=== PATIENT | female | born 1985 | race Caucasian/White ===

== ENCOUNTER 2017-02-01 05:55 | Emergency (ER) | payer OTHER ==
--- NOTE | 2017-02-01 07:19 | DIAGNOSTIC IMAGING REPORT ---
PROCEDURE: XR ANKLE 3 OR 4 VIEWS - LEFT INDICATION: ANKLE INJURY TECHNIQUE: Four views. COMPARISON: None. FINDINGS: Osseous structures, joint spaces and soft tissues are normal. Ankle mortise is normal. IMPRESSION: 1. Normal left ankle.
--- NOTE | 2017-02-01 08:27 | ED ORDER SUMMARY ---
..... Patient: NGOC KNOTT [facility] VisitID: [id number] [place] [address] 31y, F Registration Date/Time: 02/01/2017 ORDER SHEET Weight: 61.2 kg (stated) Allergies: No Known Drug Allergy GENERAL ORDERS: Ankle 3 or 4V Left Urgent (06:18 02/01/2017 Rajani Green) (Ack 6:30 Rowan) (6:37 Og) Splint (LE) (Left) (Air Splint) (07:54 02/01/2017 Rajani Green) (8:13 LWhalen R.N.) Crutches (07:54 02/01/2017 Rajani Green) (8:13 LWhalen R.N.) MEDICATION ORDERS: Hydrocodone-APAP PO 5/325 mg (NOW, HIGH ALERT MEDICATION) (06:17 02/01/2017 Rajani Green) (Ack 6:21 JQuivey R.N.) (6:25 JQuivey R.N.) IV FLUIDS: ORDER SHEET NOTES: [Electronically signed by Ana M Saha R.N. (10:40 02/01/2017)] [Electronically signed by German Orellana Dr. (10:41 02/01/2017)] [Electronically locked/signed by nAa M Saha R.N. (10:40 02/01/2017)]
--- NOTE | 2017-02-01 08:27 | ED NURSING NOTES ---
Clinical Report - Nurses [facility] [address] [place] [address] 02/01/2017 5:57 [id number] TRI[facility] Triage time 06:02. Acuity: LEVEL 4. Chief Complaint: INJURY TO LEFT ANKLE. Alert. ARASELI COMA SCORE: Araseli Coma Scale: 15- eyes open spontaneously (4); best verbal response- oriented x 4 (5); best motor response- obeys commands (6). --06:06 David Newman R.N. 06:02 02/01/17. BP: 110/72. HR: 95. RR: 17 (regular and unlabored). O2 saturation: 97% on room air. Temp: 98.9 F. Pain level now: 04/28. --06:06 David Newman R.N. Weight: 61.2 kg stated. Height/Length: 65 inches. BMI: 22.5. --06:02 David Newman R.N. Medications None. --06:05 David Newman R.N. Allergies No Known Drug Allergy. --06:05 David Newman R.N. History Arrived by private vehicle. Historian: patient. Accompanied by friend. Mechanism of injury: sustained a twisting injury. ( pt states that she fell down an escalator "at work," and was wearing high heels.). She has had trouble walking. No numbness, tingling, weakness, neck pain or back pain. Treatment BUILDINGS AND GROUNDS COORDINATOR: Ice. PAST MEDICAL HX: Tetanus status: unknown. Last normal menstrual period- 4 years ago. SOCIAL HX: Heavy tobacco smoker (cigarette)- less than 1 pack per day. Regular alcohol use. History of heavy drug use. Recently used drugs today. SELF HARM ASSESSMENT: A self harm assessment was performed. The patient answered "no" to the question "Have you noticed less interest or pleasure in doing things?", "Do you have thoughts of harming or killing yourself?", "Are you here because you tried to hurt yourself?", "Have you ever tried to hurt yourself before today?" and "Have you recently had thoughts about harming or killing others?". FALL RISK ASSESSMENT: Fall risk assessment completed. No fall risk identified. NUTRITIONAL RISK ASSESSMENT: The nutritional risk assessment revealed no deficiencies. FUNCTIONAL ASSESSMENT: Functional assessment: no impairments noted. LEARNING NEEDS ASSESSMENT: The learning needs assessment revealed no barriers. SKIN INTEGRITY ASSESSMENT: Skin integrity risk assessment completed. No skin integrity risk identified. --06:06 David Newman R.N. PROBLEMS: no known problems. ADDITIONAL SURGERIES: no known surgeries. Interventions ID band on patient. To treatment room. --06:06 David Newman R.N. PHYSICAL ASSESSMENT To room via wheelchair. GENERAL / NEURO / PSYCH: Appears in pain. EXTREMITIES: Capillary refill is less than 2 seconds in the extremities. Pain with weight bearing. Left knee: small abrasion. Left leg: small abrasion. Left ankle: tenderness and swelling. Left foot: tenderness. --06:08 David Newman R.N. SKIN: Skin is warm and dry. --06:08 David Newman R.N. NURSING PROGRESS NOTES Cold pack applied. Extremity elevated. Reassurance given. Two patient identifiers checked. Call light placed in reach. Side rails up x 1. Bed placed in lowest position. Brakes of bed on. Patient ready for evaluation- chart flagged. Patient waiting for evaluation. --06:07 David Newman R.N. 06:23 02/01/2017 Hydrocodone-APAP (Hydrocodone-Acetaminophen) PO 5/325 mg Tablets 1 tab given. Allergies verified, confirmed 5 rights and sedative warning given to the patient and patient's hem marker. --06:25 Anjel Prieto R.N. ( Report given to Ana M Ramires RN, Care transferred to her.). --07:43 David Newman R.N. DISPOSITION / DISCHARGE Departure time: 0835. Condition at departure: improved. No learning barriers present. Discharge instructions provided and reviewed. Reviewed medication(s) information. Prescription(s) given to the patient. Reviewed crutch walking and splint care instructions. Patient and hem marker verbalized understanding. Written instructions provided. The patient was discharged home and accompanied by hem marker. She left the Emergency Department ambulatory. --10:39 Ana M Saha R.N. 08:35 02/01/17. BP: 113/79. HR: 72. RR: 18. O2 saturation: 100%. Temp: deferred. Pain level now: 01/27. --10:39 Ana M Saha R.N. Locked/Released at 02/01/2017 10:40 by Ana M Saha R.N.
--- NOTE | 2017-02-01 08:27 | ED NURSING NOTES ---
Clinical Report - Nurses [facility] [address] [place] [address] 02/01/2017 5:57 [id number] TRIAGE Triage time 06:02. Acuity: LEVEL 4. Chief Complaint: INJURY TO LEFT ANKLE. Alert. ARASELI COMA SCORE: Araseli Coma Scale: 15- eyes open spontaneously (4); best verbal response- oriented x 4 (5); best motor response- obeys commands (6). --06:06 David Newman R.N. 06:02 02/01/17. BP: 110/72. HR: 95. RR: 17 (regular and unlabored). O2 saturation: 97% on room air. Temp: 98.9 F. Pain level now: 04/28. --06:06 David Newman R.N. Weight: 61.2 kg stated. Height/Length: 65 inches. BMI: 22.5. --06:02 David Newman R.N. Medications None. --06:05 David Newman R.N. Allergies No Known Drug Allergy. --06:05 David Newman R.N. History Arrived by private vehicle. Historian: patient. Accompanied by friend. Mechanism of injury: sustained a twisting injury. ( pt states that she fell down an escalator "at work," and was wearing high heels.). She has had trouble walking. No numbness, tingling, weakness, neck pain or back pain. Treatment OFFBEARER: Ice. PAST MEDICAL HX: Tetanus status: unknown. Last normal menstrual period- 4 years ago. SOCIAL HX: Heavy tobacco smoker (cigarette)- less than 1 pack per day. Regular alcohol use. History of heavy drug use. Recently used drugs today. SELF HARM ASSESSMENT: A self harm assessment was performed. The patient answered "no" to the question "Have you noticed less interest or pleasure in doing things?", "Do you have thoughts of harming or killing yourself?", "Are you here because you tried to hurt yourself?", "Have you ever tried to hurt yourself before today?" and "Have you recently had thoughts about harming or killing others?". FALL RISK ASSESSMENT: Fall risk assessment completed. No fall risk identified. NUTRITIONAL RISK ASSESSMENT: The nutritional risk assessment revealed no deficiencies. FUNCTIONAL ASSESSMENT: Functional assessment: no impairments noted. LEARNING NEEDS ASSESSMENT: The learning needs assessment revealed no barriers. SKIN INTEGRITY ASSESSMENT: Skin integrity risk assessment completed. No skin integrity risk identified. --06:06 David Newman R.N. PROBLEMS: no known problems. ADDITIONAL SURGERIES: no known surgeries. Interventions ID band on patient. To treatment room. --06:06 David Newman R.N. PHYSICAL ASSESSMENT To room via wheelchair. GENERAL / NEURO / PSYCH: Appears in pain. EXTREMITIES: Capillary refill is less than 2 seconds in the extremities. Pain with weight bearing. Left knee: small abrasion. Left leg: small abrasion. Left ankle: tenderness and swelling. Left foot: tenderness. --06:08 David Newman R.N. SKIN: Skin is warm and dry. --06:08 David Newman R.N. NURSING PROGRESS NOTES Cold pack applied. Extremity elevated. Reassurance given. Two patient identifiers checked. Call light placed in reach. Side rails up x 1. Bed placed in lowest position. Brakes of bed on. Patient ready for evaluation- chart flagged. Patient waiting for evaluation. --06:07 David Newman R.N. 06:23 02/01/2017 Hydrocodone-APAP (Hydrocodone-Acetaminophen) PO 5/325 mg Tablets 1 tab given. Allergies verified, confirmed 5 rights and sedative warning given to the patient and patient's simulation developer. --06:25 Anjel Prieto R.N. ( Report given to Ana M Ramires RN, Care transferred to her.). --07:43 David Newman R.N. DISPOSITION / DISCHARGE Departure time: 0835. Condition at departure: improved. No learning barriers present. Discharge instructions provided and reviewed. Reviewed medication(s) information. Prescription(s) given to the patient. Reviewed crutch walking and splint care instructions. Patient and simulation developer verbalized understanding. Written instructions provided. The patient was discharged home and accompanied by simulation developer. She left the Emergency Department ambulatory. --10:39 Ana M Saha R.N. 08:35 02/01/17. BP: 113/79. HR: 72. RR: 18. O2 saturation: 100%. Temp: deferred. Pain level now: 01/27. --10:39 Ana M Saha R.N. Locked/Released at 02/01/2017 10:40 by Ana M Saha R.N.
--- NOTE | 2017-02-01 08:27 | ED CLINICAL REPORT ---
Clinical Report - Physicians/Mid Levels [facility] [address] [place] [address] 02/01/2017 5:57 [id number] Time Seen: 06:02; initial patient contact. Arrived- By private vehicle. Historian- patient. HISTORY OF PRESENT ILLNESS Chief Complaint: Injury to the left ankle. 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 The patient lost balance and sustained an inversion injury while walking. Patient is experiencing moderate pain. Patient denies injury to the head or neck. REVIEW OF SYSTEMS The patient complains of pain on weight bearing. She has had swelling. No tingling, weakness or numbness. All systems otherwise negative, except as recorded above. PAST HISTORY Negative. Problems: no known problems. Surgeries: No history of previous surgery. Additional Surgeries: no known surgeries. Medications: None. Allergies: No Known Drug Allergy. SOCIAL HISTORY Current every day smoker. Regular alcohol use. ADDITIONAL NOTES The nursing notes have been reviewed. PHYSICAL EXAM Vital Signs: 02/01/2017 06:02 BP: 110/72. HR: 95. RR: 17. O2 saturation: 97%. Temp: 98.9 F. Pain level now: 7/10. Have been reviewed as normal. Skin: Skin intact. Skin warm and dry. Extremities: Left ankle: moderate tenderness and mild swelling localized to the lateral ligaments and anterior ankle. Limited ROM secondary to pain (diminished plantar flexion, dorsiflexion, inversion and eversion). Neurovascular intact distally. No ligamentous laxity present. No erythema or deformity. Foot and ankle exam otherwise negative. Extremities otherwise negative. Neuro, Vascular and Tendons: Vascular status intact. Sensation intact. Motor intact. Tendon function intact. Gait: Limping gait. Neuro: Oriented X 3. No motor deficit. LABS, X-RAYS, AND EKG Lt Ankle X-ray: No fracture. Normal alignment. No bony lesion, air in the soft tissue or foreign body. Soft tissues normal. Joint spaces normal. Views: 3 view ankle series. Technique: good. The X-rays were independently viewed by me and interpreted contemporaneously by me. Prior films were not available for comparison. Interpretation time: 06:48. PROGRESS AND PROCEDURES Disposition: Discharged home in good and improved condition. Condition: good. INSTRUCTIONS Use crutches until released. Wear air splint until released. Prescription Medications: Diclofenac 50 mg tablets: take 1 tablet orally every 8 hours as needed for pain or stiffness. Dispense thirty (30). No refill. Hydrocodone/APAP 5mg / 325mg: take 1 orally every 6 hours as needed for pain. Dispense fifteen (15). No refill. Follow-up: Screening today revealed the patient's blood pressure to be in the normal range. [facility]-up with: [facility], , [address], , [place], [id number] Follow up in about three days. Call for an appointment. (Electronically signed by German Orellana Dr. 02/01/2017 10:41)
--- NOTE | 2017-02-01 08:27 | ED ORDER SUMMARY ---
..... Patient: NGOC KNOTT OrderSheet [facility] VisitID: [id number] [place] [address] 31y, F Registration Date/Time: 02/01/2017 ORDER SHEET Weight: 61.2 kg (stated) Allergies: No Known Drug Allergy GENERAL ORDERS: Ankle 3 or 4V Left Urgent (06:18 02/01/2017 Rajani Green) (Ack 6:30 Rowan) (6:37 Og) Splint (LE) (Left) (Air Splint) (07:54 02/01/2017 Rajani Green) (8:13 LWhalen R.N.) Crutches (07:54 02/01/2017 Rajani Green) (8:13 LWhalen R.N.) MEDICATION ORDERS: Hydrocodone-APAP PO 5/325 mg (NOW, HIGH ALERT MEDICATION) (06:17 02/01/2017 Rajani Green) (Ack 6:21 JQuivey R.N.) (6:25 JQuivey R.N.) IV FLUIDS: ORDER SHEET NOTES: [Electronically signed by Ana M Saha R.N. (10:40 02/01/2017)] [Electronically signed by German Orellana Dr. (10:41 02/01/2017)] [Electronically locked/signed by Ana M Saha R.N. (10:40 02/01/2017)]
--- NOTE | 2017-02-01 08:27 | ED CLINICAL REPORT ---
Clinical Report - Physicians/Mid Levels [facility] [address] [place] [address] 02/01/2017 5:57 [id number] Time Seen: 06:02; initial patient contact. Arrived- By private vehicle. Historian- patient. HISTORY OF PRESENT ILLNESS Chief Complaint: Injury to the left ankle. 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 The patient lost balance and sustained an inversion injury while walking. Patient is experiencing moderate pain. Patient denies injury to the head or neck. REVIEW OF SYSTEMS The patient complains of pain on weight bearing. She has had swelling. No tingling, weakness or numbness. All systems otherwise negative, except as recorded above. PAST HISTORY Negative. Problems: no known problems. Surgeries: No history of previous surgery. Additional Surgeries: no known surgeries. Medications: None. Allergies: No Known Drug Allergy. SOCIAL HISTORY Current every day smoker. Regular alcohol use. ADDITIONAL NOTES The nursing notes have been reviewed. PHYSICAL EXAM Vital Signs: 02/01/2017 06:02 BP: 110/72. HR: 95. RR: 17. O2 saturation: 97%. Temp: 98.9 F. Pain level now: 7/10. Have been reviewed as normal. Skin: Skin intact. Skin warm and dry. Extremities: Left ankle: moderate tenderness and mild swelling localized to the lateral ligaments and anterior ankle. Limited ROM secondary to pain (diminished plantar flexion, dorsiflexion, inversion and eversion). Neurovascular intact distally. No ligamentous laxity present. No erythema or deformity. Foot and ankle exam otherwise negative. Extremities otherwise negative. Neuro, Vascular and Tendons: Vascular status intact. Sensation intact. Motor intact. Tendon function intact. Gait: Limping gait. Neuro: Oriented X 3. No motor deficit. LABS, X-RAYS, AND EKG Lt Ankle X-ray: No fracture. Normal alignment. No bony lesion, air in the soft tissue or foreign body. Soft tissues normal. Joint spaces normal. Views: 3 view ankle series. Technique: good. The X-rays were independently viewed by me and interpreted contemporaneously by me. Prior films were not available for comparison. Interpretation time: 06:48. PROGRESS AND PROCEDURES Disposition: Discharged home in good and improved condition. Condition: good. INSTRUCTIONS Use crutches until released. Wear air splint until released. Prescription Medications: Diclofenac 50 mg tablets: take 1 tablet orally every 8 hours as needed for pain or stiffness. Dispense thirty (30). No refill. Hydrocodone/APAP 5mg / 325mg: take 1 orally every 6 hours as needed for pain. Dispense fifteen (15). No refill. Follow-up: Screening today revealed the patient's blood pressure to be in the normal range. Follow-up with: [facility], , [address], , [place], [id number] Follow up in about three days. Call for an appointment. (Electronically signed by German Orellana Dr. 02/01/2017 10:41)
--- NOTE | 2017-02-01 10:41 | ED MAR SUMMARY ---
..... Medication Administration Record [facility] [address] [place] [address] Patient: NGOC KNOTT Visit ID: [id number] 31y, F Weight: 61.2 kg Height/Length: 65 in BMI: 22.5 ALLERGIES: No Known Drug Allergy Given 06:23 02/01/2017 Anjel Prieto R.N. Medication Administered: HYDROCODONE-APAP [PO] (HYDROCODONE-ACETAMINOPHEN), Dose: 1 tab 5/325 mg Tablets PO. Medication Ordered: Hydrocodone-APAP PO 5/325 mg (NOW, HIGH ALERT MEDICATION).
--- NOTE | 2017-02-01 10:41 | ED DISCHARGE INSTRUCTIONS ---
Patient: NGOC KNOTT General Instructions [facility] VisitID: [id number] [address] [place] [address] 31y, F Registration Date/Time: 02/01/2017 INSTRUCTIONS Use crutches until released. Wear air splint until released. Prescription Medications: Diclofenac 50 mg tablets: take 1 tablet orally every 8 hours as needed for pain or stiffness. Dispense thirty (30). No refill. Hydrocodone/APAP 5mg / 325mg: take 1 orally every 6 hours as needed for pain. Dispense fifteen (15). No refill. Follow-up: Screening today revealed the patient's blood pressure to be in the normal range. Follow-up with: [facility], , [address] [place], [id number] Follow up in about three days. Call for an appointment. ADDITIONAL INFORMATION Aircast Traditional splints and casts for the foot and ankle protect the injury by preventing movement at the joints. However, many injuries heal better and faster if the injured joint can be moved, while protected at the same time. This is the reason for using an Aircast. There are two common type of AirCasts: 1) Air-Stirrup ankle splint This is often used to treat ankle sprains. It contains padded air cells in a plastic frame that fits into your shoe. This allows you to walk while preventing the ankle joint from rolling in or out causing re-injury. Ankle sprains can take 4-6 weeks to heal. Persons with severe injuries or over age 60 may require more time to heal. During that time, you are prone to re-injury by suddenly twisting your ankle again while the ligaments are still weak. When treating a sprain, the Air-Stirrup splint should be worn whenever walking for at least four weeks, or as long as you continue to have ankle pain. You should continue to wear it at least 6 weeks whenever running, playing sports or any activity where there is increased risk of re-injury. Talk to your doctor for specific advice about the treatment of your condition. 2) SP-Walker boot This is a short boot that provides support and protection to the foot and ankle while allowing you to walk. It contains padded air cells that provide compression and help circulation. It is used for both foot and ankle injuries - both sprains and minor fractures. Talk to your doctor for specific advice about the treatment of your condition. Air-Stirrup and SP-Walker are trademarks of [employer]. For more information about their products, see www.[employer]. Hydrocodone Bitartrate, Acetaminophen Oral tablet What is this medicine? ACETAMINOPHEN; HYDROCODONE (a set a GRACIE jhon fen; nakia droe KOE done) is a pain reliever. It is used to treat mild to moderate pain. How should I use this medicine? Take this medicine by mouth. Swallow it with a full glass of water. Follow the directions on the prescription label. If the medicine upsets your stomach, take the medicine with food or milk. Do not take more than you are told to take. Talk to your machine feeder raw stock regarding the use of this medicine in children. This medicine is not approved for use in children. What side effects may I notice from receiving this medicine? Side effects that you should report to your doctor or health rn intensive care unit as soon as possible: allergic reactions like skin rash, itching or hives, swelling of the face, lips, or tongue breathing problems confusion feeling faint or lightheaded, falls stomach pain yellowing of the eyes or skin Side effects that usually do not require medical attention (report to your doctor or health rn intensive care unit if they continue or are bothersome): nausea, vomiting stomach upset What may interact with this medicine? alcohol antihistamines isoniazid medicines for depression, anxiety, or psychotic disturbances medicines for sleep muscle relaxants naltrexone narcotic medicines (opiates) for pain phenobarbital ritonavir tramadol What if I miss a dose? If you miss a dose, take it as soon as you can. If it is almost time for your next dose, take only that dose. Do not take double or extra doses. Where should I keep my medicine? Keep out of the reach of children. This medicine can be abused. Keep your medicine in a safe place to protect it from theft. Do not share this medicine with anyone. Selling or giving away this medicine is dangerous and against the law. Store at room temperature between 15 and 30 degrees C (59 and 86 degrees F). Protect from light. Keep container tightly closed. Throw away any unused medicine after the expiration date. Discard unused medicine and used packaging carefully. Pets and children can be harmed if they find used or lost packages. What should I tell my health care provider before I take this medicine? They need to know if you have any of these conditions: brain tumor Crohn's disease, inflammatory bowel disease, or ulcerative colitis drink more than 3 alcohol-containing drinks per day drug abuse or addiction head injury heart or circulation problems kidney disease or problems going to the bathroom liver disease lung disease, asthma, or breathing problems an unusual or allergic reaction to acetaminophen, hydrocodone, other opioid analgesics, other medicines, foods, dyes, or preservatives or trying to get breast-feeding What should I watch for while using this medicine? Tell your doctor or health rn intensive care unit if your pain does not go away, if it gets worse, or if you have new or a different type of pain. You may develop tolerance to the medicine. Tolerance means that you will need a higher dose of the medicine for pain relief. Tolerance is normal and is expected if you take the medicine for a long time. Do not suddenly stop taking your medicine because you may develop a severe reaction. Your body becomes used to the medicine. This does NOT mean you are addicted. Addiction is a behavior related to getting and using a drug for a non-medical reason. If you have pain, you have a medical reason to take pain medicine. Your doctor will tell you how much medicine to take. If your doctor wants you to stop the medicine, the dose will be slowly lowered over time to avoid any side effects. You may get drowsy or dizzy when you first start taking the medicine or change doses. Do not drive, use machinery, or do anything that may be dangerous until you know how the medicine affects you. Stand or sit up slowly. There are different types of narcotic medicines (opiates) for pain. If you take more than one type at the same time, you may have more side effects. Give your health care provider a list of all medicines you use. Your doctor will tell you how much medicine to take. Do not take more medicine than directed. Call emergency for help if you have problems breathing. The medicine will cause constipation. Try to have a bowel movement at least every 2 to 3 days. If you do not have a bowel movement for 3 days, call your doctor or health rn intensive care unit. Too much acetaminophen can be very dangerous. Do not take Tylenol (acetaminophen) or medicines that contain acetaminophen with this medicine. Many non-prescription medicines contain acetaminophen. Always read the labels carefully. You have been given the following additional information: Aircast Splint And Boot Hydrocodone Bitartrate, Acetaminophen Oral tablet (Electronically signed by German Orellana Dr. 02/01/2017 10:41)
--- NOTE | 2017-02-01 10:41 | ED MAR SUMMARY ---
..... Medication Administration Record [facility] [address] [place] [address] Patient: NGOC KNOTT Visit ID: [id number] 31y, F Weight: 61.2 kg Height/Length: 65 in BMI: 22.5 ALLERGIES: No Known Drug Allergy Given 06:23 02/01/2017 Anjel Prieto R.N. Medication Administered: HYDROCODONE-APAP [PO] (HYDROCODONE-ACETAMINOPHEN), Dose: 1 tab 5/325 mg Tablets PO. Medication Ordered: Hydrocodone-APAP PO 5/325 mg (NOW, HIGH ALERT MEDICATION).
--- NOTE | 2017-02-01 10:41 | ED MED RECONCILIATION SUMMARY ---
Patient: NGOC KNOTT Medication Reconciliation Report [facility] VisitID: [id number] [place] [address] 31y, F Registration Date/Time: 02/01/2017 Weight: 61.2 kg Height/Length: 65 in. BMI: 22.5 ALLERGIES: No Known Drug Allergy The patient's Home Medications are listed below: NONE. The source(s) of the original Home Medication information: Not obtained. The following Medications were given to the patient in the Emergency Department: Hydrocodone-APAP [PO] PO 1 tab, administered: 02/01/2017 6:23:00 AM The following Medications were prescribed to the patient: Diclofenac 50 mg tablets: take 1 tablet orally every 8 hours as needed for pain or stiffness. Dispense thirty (30). No refill. -- German Orellana Dr. Hydrocodone/APAP 5mg / 325mg: take 1 orally every 6 hours as needed for pain. Dispense fifteen (15). No refill. -- German Orellana Dr.
--- NOTE | 2017-02-01 10:41 | ED DISCHARGE INSTRUCTIONS ---
Patient: NGOC KNOTT General Instructions [facility] VisitID: [id number] [address] [place] [address] 31y, F Registration Date/Time: 02/01/2017 INSTRUCTIONS Use crutches until released. Wear air splint until released. Prescription Medications: Diclofenac 50 mg tablets: take 1 tablet orally every 8 hours as needed for pain or stiffness. Dispense thirty (30). No refill. Hydrocodone/APAP 5mg / 325mg: take 1 orally every 6 hours as needed for pain. Dispense fifteen (15). No refill. Follow-up: Screening today revealed the patient's blood pressure to be in the normal range. Follow-up with: [facility], , [address] [place], [id number] Follow up in about three days. Call for an appointment. ADDITIONAL INFORMATION Aircast Traditional splints and casts for the foot and ankle protect the injury by preventing movement at the joints. However, many injuries heal better and faster if the injured joint can be moved, while protected at the same time. This is the reason for using an Aircast. There are two common type of AirCasts: 1) Air-Stirrup ankle splint This is often used to treat ankle sprains. It contains padded air cells in a plastic frame that fits into your shoe. This allows you to walk while preventing the ankle joint from rolling in or out causing re-injury. Ankle sprains can take 4-6 weeks to heal. Persons with severe injuries or over age 60 may require more time to heal. During that time, you are prone to re-injury by suddenly twisting your ankle again while the ligaments are still weak. When treating a sprain, the Air-Stirrup splint should be worn whenever walking for at least four weeks, or as long as you continue to have ankle pain. You should continue to wear it at least 6 weeks whenever running, playing sports or any activity where there is increased risk of re-injury. Talk to your doctor for specific advice about the treatment of your condition. 2) SP-Walker boot This is a short boot that provides support and protection to the foot and ankle while allowing you to walk. It contains padded air cells that provide compression and help circulation. It is used for both foot and ankle injuries - both sprains and minor fractures. Talk to your doctor for specific advice about the treatment of your condition. Air-Stirrup and SP-Walker are trademarks of [employer] For more information about their products, see www.[employer]. Hydrocodone Bitartrate, Acetaminophen Oral tablet What is this medicine? ACETAMINOPHEN; HYDROCODONE (a set a GRACIE jhon fen; nakia droe KOE done) is a pain reliever. It is used to treat mild to moderate pain. How should I use this medicine? Take this medicine by mouth. Swallow it with a full glass of water. Follow the directions on the prescription label. If the medicine upsets your stomach, take the medicine with food or milk. Do not take more than you are told to take. Talk to your mailroom courier regarding the use of this medicine in children. This medicine is not approved for use in children. What side effects may I notice from receiving this medicine? Side effects that you should report to your doctor or health disabilities caregiver as soon as possible: allergic reactions like skin rash, itching or hives, swelling of the face, lips, or tongue breathing problems confusion feeling faint or lightheaded, falls stomach pain yellowing of the eyes or skin Side effects that usually do not require medical attention (report to your doctor or health disabilities caregiver if they continue or are bothersome): nausea, vomiting stomach upset What may interact with this medicine? alcohol antihistamines isoniazid medicines for depression, anxiety, or psychotic disturbances medicines for sleep muscle relaxants naltrexone narcotic medicines (opiates) for pain phenobarbital ritonavir tramadol What if I miss a dose? If you miss a dose, take it as soon as you can. If it is almost time for your next dose, take only that dose. Do not take double or extra doses. Where should I keep my medicine? Keep out of the reach of children. This medicine can be abused. Keep your medicine in a safe place to protect it from theft. Do not share this medicine with anyone. Selling or giving away this medicine is dangerous and against the law. Store at room temperature between 15 and 30 degrees C (59 and 86 degrees F). Protect from light. Keep container tightly closed. Throw away any unused medicine after the expiration date. Discard unused medicine and used packaging carefully. Pets and children can be harmed if they find used or lost packages. What should I tell my health care provider before I take this medicine? They need to know if you have any of these conditions: brain tumor Crohn's disease, inflammatory bowel disease, or ulcerative colitis drink more than 3 alcohol-containing drinks per day drug abuse or addiction head injury heart or circulation problems kidney disease or problems going to the bathroom liver disease lung disease, asthma, or breathing problems an unusual or allergic reaction to acetaminophen, hydrocodone, other opioid analgesics, other medicines, foods, dyes, or preservatives or trying to get breast-feeding What should I watch for while using this medicine? Tell your doctor or health disabilities caregiver if your pain does not go away, if it gets worse, or if you have new or a different type of pain. You may develop tolerance to the medicine. Tolerance means that you will need a higher dose of the medicine for pain relief. Tolerance is normal and is expected if you take the medicine for a long time. Do not suddenly stop taking your medicine because you may develop a severe reaction. Your body becomes used to the medicine. This does NOT mean you are addicted. Addiction is a behavior related to getting and using a drug for a non-medical reason. If you have pain, you have a medical reason to take pain medicine. Your doctor will tell you how much medicine to take. If your doctor wants you to stop the medicine, the dose will be slowly lowered over time to avoid any side effects. You may get drowsy or dizzy when you first start taking the medicine or change doses. Do not drive, use machinery, or do anything that may be dangerous until you know how the medicine affects you. Stand or sit up slowly. There are different types of narcotic medicines (opiates) for pain. If you take more than one type at the same time, you may have more side effects. Give your health care provider a list of all medicines you use. Your doctor will tell you how much medicine to take. Do not take more medicine than directed. Call emergency for help if you have problems breathing. The medicine will cause constipation. Try to have a bowel movement at least every 2 to 3 days. If you do not have a bowel movement for 3 days, call your doctor or health disabilities caregiver. Too much acetaminophen can be very dangerous. Do not take Tylenol (acetaminophen) or medicines that contain acetaminophen with this medicine. Many non-prescription medicines contain acetaminophen. Always read the labels carefully. You have been given the following additional information: Aircast Splint And Boot Hydrocodone Bitartrate, Acetaminophen Oral tablet (Electronically signed by German Orellana Dr. 02/01/2017 10:41)
--- NOTE | 2017-02-01 10:41 | ED MED RECONCILIATION SUMMARY ---
Patient: NGOC KNOTT Medication Reconciliation Report [facility] VisitID: [id number] [place] [address] 31y, F Registration Date/Time: 02/01/2017 Weight: 61.2 kg Height/Length: 65 in. BMI: 22.5 ALLERGIES: No Known Drug Allergy The patient's Home Medications are listed below: NONE. The source(s) of the original Home Medication information: Not obtained. The following Medications were given to the patient in the Emergency Department: Hydrocodone-APAP [PO] PO 1 tab, administered: 02/01/2017 6:23:00 AM The following Medications were prescribed to the patient: Diclofenac 50 mg tablets: take 1 tablet orally every 8 hours as needed for pain or stiffness. Dispense thirty (30). No refill. -- German Orellana Dr. Hydrocodone/APAP 5mg / 325mg: take 1 orally every 6 hours as needed for pain. Dispense fifteen (15). No refill. -- German Orellana Dr.
== END 2017-02-01 08:35 | disposition home or self-care (01) ==
LOC: ED SRH 05:55
DX: S93.402A Sprain of unspecified ligament of left ankle, initial encounter (principal); W10.0XXA Fall (on)(from) escalator, initial encounter; Y93.01 Activity, walking, marching and hiking; Y92.89 Other specified places as the place of occurrence of the external cause; Y99.9 Unspecified external cause status; F17.210 Nicotine dependence, cigarettes, uncomplicated